=== PATIENT | female | born 1950 | race Asian ===

== ENCOUNTER 2016-12-20 21:15 | Emergency (ER) | payer OTHER ==
--- NOTE | 2016-12-20 21:31 | PDOC ---
History of Present Illness - General History Source: Patient Exam Limitations: No Limitations - History of Present Illness Initial Comments: 12/20/16 21:32 The patient is a 66 year old female with no significant past medical history who presents to the ED with complaints of frequency, flank pain and subjective fever for a week. The patient reports urinary frequency and bladder pain secondary to urination. She notes she feels like she had to urinate constantly but is not producing urine. Patient also reports dysuria and intermittent hematuria associated with present symptoms. She reports non radiating left sided flank pain that is a 6/10 in severity. Patient also reports a subjective fever and dizziness. Patient states her symptoms progressively worsened yesterday. Patient reports she visited her doctor this week and was given pain medication with no relief. Denies abdominal pain, nausea, vomiting or diarrhea. Denies chest pain or shortness of breath. Denies any other symptoms. <Rene Duque - Last Filed: 12/20/16 21:32> <Troy Kowalski - Last Filed: 12/21/16 04:04> - General Chief Complaint: Urinary Problem Stated Complaint: LEFT FLANK PAIN, URINARY PAIN Time Seen by Provider: 12/20/16 21:30 Past History <Rene Duque - Last Filed: 12/20/16 21:32> <Troy Kowalski - Last Filed: 12/21/16 04:04> - Past Medical History Allergies/Adverse Reactions: Allergies Allergy/AdvReac Type Severity Reaction Status Date / Time No Known Allergies Allergy Verified 12/20/16 21:30 Home Medications: Ambulatory Orders Ciprofloxacin [Cipro (Restricted To Id)] 500 mg PO Q12H #20 tablet 12/20/16 Review of Systems - Review of Systems Able to Perform ROS?: Yes Comments:: 12/20/16 21:32 CONSTITUTIONAL: + fever Absent: diaphoresis, generalized weakness, malaise, loss of appetite HEENT: Absent: rhinorrhea, nasal congestion, throat pain, throat swelling, difficulty swallowing, mouth swelling, ear pain, eye pain, visual Changes CARDIOVASCULAR: Absent: chest pain, syncope, palpitations, irregular heart rate, lightheadedness , peripheral edema RESPIRATORY: Absent: cough, shortness of breath, dyspnea with exertion, orthopnea, wheezing, stridor, hemoptysis GASTROINTESTINAL: Absent: abdominal pain, abdominal distension, nausea, vomiting, diarrhea, constipation, melena, hematochezia GENITOURINARY: + flank pain, dysuria, hematuria, frequency, bladder pain Absent: urgency, hesitancy, flank pain, genital pain MUSCULOSKELETAL: Absent: myalgia, arthralgia, joint swelling SKIN: Absent: rash, itching, pallor HEMATOLOGIC/IMMUNOLOGIC: Absent: easy bleeding, easy bruising, lymphadenopathy, frequent infections ENDOCRINE: Absent: unexplained weight gain, unexplained weight loss, heat intolerance, cold intolerance NEUROLOGIC: + dizziness Absent: headache, focal weakness or paresthesias, unsteady gait, seizure, mental status changes, bladder or bowel incontinence PSYCHIATRIC: Absent: anxiety, depression, suicidal or homicidal ideation, hallucinations. All Other Systems: Reviewed and Negative <Rene Duque - Last Filed: 12/20/16 21:32> *Physical Exam - Physical Exam Comments: 12/20/16 21:33 GENERAL: Well developed, well nourished. Awake and alert. No acute distress. HEENT: Normocephalic, atraumatic. PERRLA, EOMI. No conjunctival pallor. Sclera are non- icteric. Moist mucous membranes. Oropharynx is clear. NECK: Supple. Full ROM. No JVD. Carotid pulses 2+ and symmetric, without bruits. No thyromegaly. NCo lymphadenopathy. CARDIOVASCULAR: Regular rate and rhythm. No murmurs, rubs, or gallops. Distal pulses are 2+ and symmetric. PULMONARY: No evidence of respiratory distress. Lungs clear to auscultation bilaterally. No wheezing, rales or rhonchi. ABDOMINAL: Soft. Non-tender. Non-distended. No rebound or guarding. No organomegaly. Normoactive bowel sounds. MUSCULOSKELETAL + Left costovertebral tenderness. Normal range of motion at all joints. No bony deformities or tenderness. EXTREMITIES: No cyanosis. No clubbing. No edema. No calf tenderness. SKIN: Warm and dry. Normal capillary refill. No rashes. No jaundice. NEUROLOGICAL: Alert, awake, appropriate. Cranial nerves 2-12 intact. No deficits to light touch and temperature in face, upper extremities and lower extremities. No motor deficits in the in face, upper extremities and lower extremities. Normoreflexic in the upper and lower extremities. Normal speech. Toes are down- going bilaterally. Gait is normal without ataxia. PSYCHIATRIC: Cooperative. Good eye contact. Appropriate mood and affect. <Rene Duque - Last Filed: 12/20/16 21:32> ED Treatment Course - LABORATORY CBC & Chemistry Diagram: 12/20/16 21:40 12/20/16 21:40 <Troy Kowalski - Last Filed: 12/21/16 04:04> Medical Decision Making - Medical Decision Making 12/21/16 04:02 PE and hpi c/w pyelo fluids and abx in ED prefer to admit patient but she refuses (we offered to let granddaughter stay with her overnight in patients room) continue abx return to ED for worsening <Troy Kowalski - Last Filed: 12/21/16 04:04> *DC/Admit/Observation/Transfer - Attestations Scribe Attestion: 12/20/16 21:33 Documentation prepared by Rene Duque, acting as associate medical director for Troy Kowalski MD <Rene Duque - Last Filed: 12/20/16 21:32> <Troy Kowalski - Last Filed: 12/21/16 04:04> Diagnosis at time of Disposition: Urinary tract infection Qualifiers: Urinary tract infection type: acute pyelonephritis Qualified Code(s): N10 - Acute pyelonephritis - Discharge Dispostion Disposition: HOME Condition at time of disposition: Good - Prescriptions Prescriptions: Ciprofloxacin [Cipro (Restricted To Id)] 500 mg PO Q12H #20 tablet - Patient Instructions Printed Discharge Instructions: DI for Kidney Infection Additional Instructions: I recommend you stay in the hospital. Please return to the ER if you continue to feel bad or if you feel worse. Be sure to take the antibiotics as prescribed
[2016-12-20] MEDS ORDERED: CIPROFLOXACIN 500 MG TABLET (RESTRICTED TO ID) PO ONE (21:40)
[2016-12-20] MEDS ORDERED: CIPROFLOXACIN 250 MG TABLET (RESTRICTED TO ID) PO ONE (21:44)
[2016-12-20 21:50] LABS: URINE APPEARANCE Clear; URINE BILIRUBIN Negative (NEGATIVE); URINE GLUCOSE (UA) Negative (NEGATIVE); URINE KETONE 2+ (NEGATIVE); URINE NITRITE Negative (NEGATIVE); URINE UROBILINOGEN 2.0 E.U/dl (0.2-1.0)
[2016-12-20 22:09] VITALS: BMI 22.7
[2016-12-20 22:12] LABS: BASOPHIL 0.3 % (0-2.0); MCH 29.4 pg (25.7-33.7); MEAN CELL VOLUME 86.5 fl (80-96); MEAN PLT VOLUME 7.5 fl (7.5-11.1); PLATELET COUNT 254 K/MM3 (134-434); RDW 11.2 % (11.6-15.6); WHITE BLOOD COUNT 17.2 K/mm3 (4.0-10.8)
[2016-12-20 22:13] LABS: URINE BLOOD 3+ (NEGATIVE); URINE COLOR YELLOW; URINE LEUK ESTERASE 1+ (NEGATIVE); URINE PROTEIN 2+ (NEGATIVE)
[2016-12-20 22:19] LABS: ALBUMIN 3.5 g/dl (3.5-5.0); ALK PHOS 70 U/L (32-92); ANION GAP 10 (8-16); BILIRUBIN,TOTAL 1.2 mg/dl (0.2-1.0); CALCIUM 8.6 mg/dl (8.4-10.2); CO2 23 mmol/L (22-28); COCKROFT - GAULT 72.7855; CREATININE 0.8 mg/dl (0.6-1.3); GLUCOSE,RANDOM 149 mg/dl (74-106); SGOT/AST 19 U/L (10-42); SGPT/ALT 14 U/L (10-40); TOT PROT 7.2 g/dl (6.4-8.3)
[2016-12-20 22:20] LABS: CPK(DFH) 77 IU/L (26-140)
[2016-12-20] MEDS ORDERED: SODIUM CHLORIDE 1,000 ML IV ONE (22:27)
[2016-12-20 22:37] VITALS: BP 115/70; PULSE 93; TEMP 99.9
[2016-12-20 22:41] LABS: URINE RBC 30-50 /hpf (0-3); URINE WBC 20-30 (3-5)
[2016-12-20 22:42] LABS: TROPONIN I (DFP) < 0.03 ng/ml (0.03-0.50)
== END 2016-12-20 23:36 | disposition home or self-care (01) ==
LOC: FER 21:15
PROC: 3E0337Z Introduction of Electrolytic and Water Balance Substance into Peripheral Vein, Percutaneous Approach (ICD-10-PCS; principal; 2016-12-20)
DX: N10 Acute pyelonephritis (principal)
CPT/HCPCS: 36415; 80053; 81003; 81015; 82550; 84484; 85025; 87086; 99283-25

== ENCOUNTER 2017-04-06 16:20 | Observation (INO) | payer OTHER ==
--- NOTE | 2017-04-06 16:27 | PDOC ---
History of Present Illness - General History Source: Patient, Family Exam Limitations: Language Barrier - History of Present Illness Initial Comments: 04/06/17 17:13 The patient is a 66 year old female, with no significant past medical history, who presents today complaining of 1 week of dizziness and weakness. She notes that her blood pressure usually runs low and she starts feeling lightheaded and dizzy when this occurs. She notes that lightheadedness is exacerbated when getting up from sitting to standing. She does not feel like the room is spinning and does not feel like she is going to fall over. She notes that she experiences intermittent chest pain that she describes as pressure and associated SOB, but is not experiencing the chest pain right now. The patient does not speak Frisian and had her son and daughter translate. Denies palpitations. Denies headache, visual changes. Denies numbness and tingling. Denies fever, chills, nausea, vomiting. Denies lower extremity swelling. Denies abdominal pain. Allergies: NKDA <Maria Chiang - Last Filed: 04/06/17 18:09> - General History Source: Patient, Family Exam Limitations: No Limitations, Language Barrier <Kisha Sandy - Last Filed: 04/06/17 19:18> - General Chief Complaint: Weakness Stated Complaint: WEAKNESS Time Seen by Provider: 04/06/17 16:24 Past History <Maria Chiang - Last Filed: 04/06/17 18:09> - Suicide/Smoking/Psychosocial Hx Smoking History: Never smoked Hx Alcohol Use: No Drug/Substance Use Hx: No Substance Use Type: None <Kisha Sandy - Last Filed: 04/06/17 19:18> - Past Medical History Allergies/Adverse Reactions: Allergies Allergy/AdvReac Type Severity Reaction Status Date / Time No Known Allergies Allergy Verified 04/06/17 16:24 Home Medications: Ambulatory Orders NK [No Known Home Medication] 04/06/17 Review of Systems - Review of Systems Able to Perform ROS?: Yes Comments:: 04/06/17 17:14 GENERAL/CONSTITUTIONAL: +weakness, dizziness, lightheadedness. No: fever, chills , loss of appetite. HEAD, EYES, EARS, NOSE AND THROAT: No: change in vision, ear pain, discharge, sore throat, throat swelling. CARDIOVASCULAR: +intermittent chest pain with associated SOB. No: palpitations, syncope RESPIRATORY: No: cough, wheezing, hemoptysis, stridor. GASTROINTESTINAL: No: nausea, vomiting, abdominal cramping, diarrhea, rectal bleeding, constipation. GENITOURINARY: No: dysuria, hematuria, frequency, urgency, flank pain. MUSCULOSKELETAL: No: back pain, neck pain, joint pain, muscle swelling or pain SKIN: No: lesions, pallor, rash or easy bruising. NEUROLOGIC: No: headache, vertigo, paresthesias ENDOCRINE: No: unexplained weight gain or loss HEMATOLOGIC/LYMPHATIC: No: anemia, easy bleeding, swelling nodes <Maria Chiang - Last Filed: 04/06/17 18:09> *Physical Exam - Vital Signs Last Vital Signs Temp Pulse Resp BP Pulse Ox 98.8 F 97 H 18 129/77 97 04/06/17 16:20 04/06/17 16:20 04/06/17 16:20 04/06/17 16:20 04/06/17 16:20 - Physical Exam Comments: 04/06/17 18:09 GENERAL: The patient is in no acute distress. HEAD: Normal with no signs of trauma. EYES: PERRLA, EOMI, sclera anicteric, conjunctiva clear. ENT: Ears normal, nares patent, oropharynx clear without exudates. Moist mucous membranes. NECK: Normal range of motion, supple without lymphadenopathy, JVD, or masses. LUNGS: Breath sounds equal, clear to auscultation bilaterally. No wheezes, and no crackles. HEART:Regular rate and rhythm, normal S1 and S2 without murmur, rub or gallop. ABDOMEN: Soft, nontender, normoactive bowel sounds. No guarding, no rebound. EXTREMITIES: Normal range of motion, no edema. No clubbing or cyanosis. No erythema, or tenderness. NEUROLOGICAL: Cranial nerves II through XII grossly intact. Normal speech. No focal neurological deficits. MUSCULOSKELETAL: Back nontender to palpation, no CVA tenderness SKIN: Warm, Dry, normal turgor, no rashes or lesions noted. <Maria Chiang - Last Filed: 04/06/17 18:09> Heart Score/ECG Review #1 ECG reviewed & interpreted by me at: 16:40 04/06/17 16:40 Sinus rhythm, rate of 97 bpm nml [place] Intervals: pr: 144ms, QRS:86ms,QTc:436ms (+) [place] No ST elevations No ST depressions No T wave inversions <Kisha Sandy - Last Filed: 04/06/17 19:18> ED Treatment Course - LABORATORY CBC & Chemistry Diagram: 04/06/17 16:35 04/06/17 16:35 - ADDITIONAL ORDERS Additional order review: Laboratory Results 04/06/17 16:35 PT with INR 10.7 INR 0.95 L 04/06/17 16:35 RBC 5.15 MCV 85.5 MCHC 34.1 RDW 12.6 D MPV 7.6 Neutrophils % 52.4 D Lymphocytes % 39.7 D Monocytes % 6.7 Eosinophils % 0.9 D Basophils % 0.3 <Maria Chiang - Last Filed: 04/06/17 18:09> - LABORATORY CBC & Chemistry Diagram: 04/06/17 16:35 04/06/17 16:35 <Kisha Sandy - Last Filed: 04/06/17 19:18> Medical Decision Making - Medical Decision Making 04/06/17 16:26 A portion of this note was documented by scribe services under my direction. I have reviewed the details of the note, within reason, and agree with the documentation with the following case summary and management plan written by me. Nursing documentation reviewed and incorporated into medical decision making 04/06/17 16:42 This patient is a 66-year-old female presented to emergency department with family due to generalized weakness. Patient's EKGs consistent with bigeminy, no acute ischemic changes. Pt has had weakness No vertigo Intermittent chest pain, none today No recent fevers or chills Resolved urinary symptoms (pt treated in October) No recent diarrhea or vomiting Labs ordered, Chest x-ray, EKG. 04/06/17 17:10 Laboratory Tests 04/06/17 04/06/17 16:35 16:35 WBC 6.4 D Hgb 15.0 Hct 44.0 Plt Count 227 INR 0.95 L 04/06/17 17:24 Laboratory Tests 04/06/17 16:35 Sodium 139 Potassium 3.9 Chloride 107 Carbon Dioxide 29 H D BUN 21 H D Creatinine 0.7 Random Glucose 113 H D AST 24 D ALT 19 D 04/06/17 17:50 Laboratory Tests 04/06/17 16:35 Troponin I < 0.03 L 04/06/17 17:51 Pt states that she feels much better No longer feeling weak Pt still has head heaviness No new symptoms Pt does not want to be placed on observation I have explained my concern that her symptoms are non specific and could be related to CAD EKG demonstrates bigemeny, pt has no old ekgs for comparison Granddaughter is attempting to explain to this patient the importance of complete work up Pt would like to go home In Lieu of observation, repeat troponin will be performed in 6 hours <Kisha Sandy - Last Filed: 04/06/17 19:18> *DC/Admit/Observation/Transfer - Attestations Scribe Attestion: 04/06/17 17:14 Documentation prepared by JEREMY Lua, acting as medical practitioners for Kisha Sandy MD <Maria Chiang - Last Filed: 04/06/17 18:09> - Discharge Dispostion Admit: No <Kisha Sandy - Last Filed: 04/06/17 19:18> Diagnosis at time of Disposition: Weakness - Discharge Dispostion Condition at time of disposition: Stable - Patient Instructions Printed Discharge Instructions: DI for Muscle Weakness
[2017-04-06] MEDS ORDERED: SODIUM CHLORIDE 1,000 ML IV SCH (16:30)
[2017-04-06 16:58] LABS: BASOPHIL 0.3 % (0-2.0); EOSINOPHIL 0.9 % (0-4.5); MCH 29.1 pg (25.7-33.7); MCHC 34.1 g/dl (32.0-36.0); MEAN CELL VOLUME 85.5 fl (80-96); MEAN PLT VOLUME 7.6 fl (7.5-11.1); NEUTROPHILS 52.4 % (42.8-82.8); PLATELET COUNT 227 K/MM3 (134-434); RDW 12.6 % (11.6-15.6); WHITE BLOOD COUNT 6.4 K/mm3 (4.0-10.8)
[2017-04-06 17:04] LABS: INR 0.95 (0.82-1.09); PROTHROMBIN TIME (PATIENT) 10.7 SEC (10.2-13.0)
[2017-04-06 17:11] LABS: ALBUMIN 4.3 g/dl (3.5-5.0); ALK PHOS 82 U/L (32-92); ANION GAP 3 (8-16); BILIRUBIN,TOTAL 0.8 mg/dl (0.2-1.0); CALCIUM 9.5 mg/dl (8.4-10.2); CO2 29 mmol/L (22-28); CPK 143 IU/L (26-192); CREATININE 0.7 mg/dl (0.6-1.3); GLUCOSE,RANDOM 113 mg/dl (74-106); MAGNESIUM 2.3 mg/dL (1.8-2.4); SGOT/AST 24 U/L (10-42); SGPT/ALT 19 U/L (10-40)
[2017-04-06 17:27] LABS: TROPONIN I (DFP) < 0.03 ng/ml (0.03-0.50)
[2017-04-06 17:32] LABS: PH,URINE 6.5 (4.5-8); URINE APPEARANCE Clear; URINE BILIRUBIN Negative (NEGATIVE); URINE BLOOD Trace-intact (NEGATIVE); URINE GLUCOSE (UA) Negative (NEGATIVE); URINE KETONE Negative (NEGATIVE); URINE NITRITE Negative (NEGATIVE); URINE PROTEIN Negative (NEGATIVE); URINE UROBILINOGEN 0.2 (0.2-1.0)
[2017-04-06 17:33] LABS: URINE COLOR YELLOW
[2017-04-06 18:15] LABS: URINE BACTERIA FEW /hpf (NEGATIVE); URINE RBC 0-2 /hpf (0-3)
[2017-04-06 18:17] LABS: URINE LEUK ESTERASE TRACE (NEGATIVE)
[2017-04-06 19:29] LABS: THYROID STIMULATING HORMONE 1.16 uIU/ml (0.358-3.74)
--- NOTE | 2017-04-06 19:46 | PDOC ---
*Physical Exam - Vital Signs Last Vital Signs Temp Pulse Resp BP Pulse Ox 98.8 F 85 16 123/88 98 04/06/17 16:20 04/06/17 19:45 04/06/17 19:45 04/06/17 19:45 04/06/17 19:45 - Physical Exam Comments: 04/06/17 20:03 Constitutional: Awake, alert, oriented. No acute distress. Head: Normocephalic. Atraumatic Eyes: PERRL. EOMI. Conjunctivae are not pale. ENT: Mucous membranes are moist and intact. Posterior pharynx without exudates or erythema. Uvula midline. Neck: Supple. Full ROM. No lymphadenopathy. Cardiovascular: Heart sounds normal but persistant bigeminy on the monitor. Regular rate. Regular rhythm. S1, S2 regular. Distal pulses are 2+ and symmetric. Pulmonary/Chest: No evidence of respiratory distress. Clear to auscultation bilaterally No wheezing, rales or rhonchi. Abdominal: Soft and non-distended. There is no tenderness. No rebound, guarding or rigidity. No organomegaly. No palpable masses. Good bowel sounds. Back: No CVA tenderness. Musculoskeletal: No edema. No cyanosis. No clubbing. Full range of motion in all extremities. Nocalf tenderness. Radial/pedal pulses are intact and 2+ bilaterally Skin: Skin is warm and dry. No petechiae. No purpura. Neurological: Alert and oriented to person, place, and time. Cranial nerves II -XII are grossly intact. Normal speech. Strength is grossly symmetric. No sensory deficits. Psychiatric: Good eye contact. Normal interaction, affect and behavior. <Maria Chiang - Last Filed: 04/06/17 20:03> - Vital Signs Last Vital Signs Temp Pulse Resp BP Pulse Ox 98.8 F 102 H 18 129/80 97 04/06/17 16:20 04/06/17 17:30 04/06/17 17:30 04/06/17 17:30 04/06/17 17:30 <Yandy Phillips - Last Filed: 04/06/17 20:38> ED Treatment Course - LABORATORY CBC & Chemistry Diagram: 04/06/17 16:35 04/06/17 16:35 - ADDITIONAL ORDERS Additional order review: Laboratory Results 0904/06/17 04/06/17 17:05 16:35 16:35 PT with INR INR Sodium Potassium Chloride Carbon Dioxide Anion Gap BUN Creatinine Creat Clearance w eGFR Random Glucose Calcium Magnesium Total Bilirubin AST ALT Alkaline Phosphatase Creatine Kinase 143 Troponin I < 0.03 L Total Protein Albumin TSH Urine Color Yellow Urine Appearance Clear Urine pH 6.5 Ur Specific [place] <= 1.005 Urine Protein Negative Urine Glucose (UA) Negative Urine Ketones Negative Urine Blood Trace-intact H Urine Nitrite Negative Urine Bilirubin Negative Urine Urobilinogen 0.2 Urine RBC 0-2 Urine WBC 2-3 Ur Epithelial Cells Few Urine Bacteria Few Blood Type O POSITIVE Antibody Screen Negative 04/06/17 04/06/17 16:35 16:35 PT with INR 10.7 INR 0.95 L Sodium 139 Potassium 3.9 Chloride 107 Carbon Dioxide 29 H D Anion Gap 3 L BUN 21 H D Creatinine 0.7 Creat Clearance w eGFR > 60 Random Glucose 113 H D Calcium 9.5 Magnesium 2.3 Total Bilirubin 0.8 D AST 24 D ALT 19 D Alkaline Phosphatase 82 Creatine Kinase Troponin I Total Protein 7.0 Albumin 4.3 D TSH 1.16 Urine Color Urine Appearance Urine pH Ur Specific [place] Urine Protein Urine Glucose (UA) Urine Ketones Urine Blood Urine Nitrite Urine Bilirubin Urine Urobilinogen Urine RBC Urine WBC Ur Epithelial Cells Urine Bacteria Blood Type Antibody Screen 04/06/17 16:35 RBC 5.15 MCV 85.5 MCHC 34.1 RDW 12.6 D MPV 7.6 Neutrophils % 52.4 D Lymphocytes % 39.7 D Monocytes % 6.7 Eosinophils % 0.9 D Basophils % 0.3 <Maria Chiang - Last Filed: 04/06/17 20:03> - LABORATORY CBC & Chemistry Diagram: 04/06/17 16:35 04/06/17 16:35 - ADDITIONAL ORDERS Additional order review: Laboratory Results 04/06/17 04/06/17 04/06/17 17:05 16:35 16:35 PT with INR INR Sodium Potassium Chloride Carbon Dioxide Anion Gap BUN Creatinine Creat Clearance w eGFR Random Glucose Calcium Magnesium Total Bilirubin AST ALT Alkaline Phosphatase Creatine Kinase 143 Troponin I < 0.03 L Total Protein Albumin TSH Urine Color Yellow Urine Appearance Clear Urine pH 6.5 Ur Specific [place] <= 1.005 Urine Protein Negative Urine Glucose (UA) Negative Urine Ketones Negative Urine Blood Trace-intact H Urine Nitrite Negative Urine Bilirubin Negative Urine Urobilinogen 0.2 Urine RBC 0-2 Urine WBC 2-3 Ur Epithelial Cells Few Urine Bacteria Few Blood Type O POSITIVE Antibody Screen Negative 04/06/17 04/06/17 16:35 16:35 PT with INR 10.7 INR 0.95 L Sodium 139 Potassium 3.9 Chloride 107 Carbon Dioxide 29 H D Anion Gap 3 L BUN 21 H D Creatinine 0.7 Creat Clearance w eGFR > 60 Random Glucose 113 H D Calcium 9.5 Magnesium 2.3 Total Bilirubin 0.8 D AST 24 D ALT 19 D Alkaline Phosphatase 82 Creatine Kinase Troponin I Total Protein 7.0 Albumin 4.3 D TSH 1.16 Urine Color Urine Appearance Urine pH Ur Specific [place] Urine Protein Urine Glucose (UA) Urine Ketones Urine Blood Urine Nitrite Urine Bilirubin Urine Urobilinogen Urine RBC Urine WBC Ur Epithelial Cells Urine Bacteria Blood Type Antibody Screen 04/06/17 16:35 RBC 5.15 MCV 85.5 MCHC 34.1 RDW 12.6 D MPV 7.6 Neutrophils % 52.4 D Lymphocytes % 39.7 D Monocytes % 6.7 Eosinophils % 0.9 D Basophils % 0.3 <Yandy Phillips - Last Filed: 04/06/17 20:38> Medical Decision Making - Medical Decision Making 04/06/17 20:03 66 yr old female with no significant past medical history -Hearts sounds normal but persistent bigeminy on the monitor -Intermittent dyspnea and chest discomfort while in the ER -Granddaughter convinced to her to stay. [facility] and we will admit to hospitalist <Maria Chiang - Last Filed: 04/06/17 20:03> - Medical Decision Making 04/06/17 20:36 a/p: pt states intermittent chest pressure, intermittent dyspnea and generalized weakness. will keep in obs for further eval. granddaughter at the bedside. patient pending repeat trops, will need cardiac monitoring - currently bigeminy. case discussed with IM resident, accepts pt to service under Dr. Villanueva <Yandy Phillips - Last Filed: 04/06/17 20:38> *DC/Admit/Observation/Transfer <Maria Chiang - Last Filed: 04/06/17 20:03> - Discharge Dispostion Admit: Yes - Attestations Physician Attestion: 04/06/17 20:38 I, Dr. Yandy Phillips, DO, attest that this document has been prepared under my direction and personally reviewed by me in its entirety. I further attest, that it accurately reflects all work, treatment, procedures and medical decision -making performed by me. <Yandy Phillips - Last Filed: 04/06/17 20:38> Diagnosis at time of Disposition: Weakness, Ventricular bigeminy - Discharge Dispostion Condition at time of disposition: Fair - Referrals - Patient Instructions Printed Discharge Instructions: DI for Muscle Weakness - Post Discharge Activity
--- NOTE | 2017-04-06 22:11 | HP ---
CHIEF COMPLAINT: dizziness PCP: In [facility] HISTORY OF PRESENT ILLNESS: This is a 66 year old female with significant past medical history of occasional hypotension presented to the ED today with a one week history of dizziness and weakness. She reports that her eyes feel heavy as well. She states that she has intermittent chest pain associated with difficulty catching her breath and needs to take a deep breath. She describes the pain in her chest as a heaviness. The pain is not associated with any specific alleviating or aggravating factors. She denies palpitations. She also reports an odd sensation in her epigastric area after eating at times and describes it as "feeling hungry ". She denies nausea, vomiting, diarrhea, constipation. ER course was notable for: (1) ECG with ventricular bigeminy (2) Troponin negative x 1 Recent Travel: pt denies PAST MEDICAL HISTORY: hypotension PAST SURGICAL HISTORY: ovarian cyst removal 30 years ago Social History: Smoking: denies Alcohol: denies Drugs: denies Family History: mother and father in their late 80s, old age 2 brothers and 2 sisters all alive and well 2 children alive and well Allergies No Known Allergies Allergy (Verified 04/06/17 16:24) HOME MEDICATIONS: 3 Medication Instructions Recorded NK [No Known Home Medication] 04/06/17 REVIEW OF SYSTEMS CONSTITUTIONAL: generalized weakness, malaise Absent: fever, chills, diaphoresis, loss of appetite, weight change HEENT: Absent: rhinorrhea, nasal congestion, throat pain, throat swelling, difficulty swallowing, mouth swelling, ear pain, eye pain, visual changes CARDIOVASCULAR: chest pain Absent: syncope, palpitations, irregular heart rate, lightheadedness, peripheral edema RESPIRATORY: Absent: cough, shortness of breath, dyspnea with exertion, orthopnea, wheezing, stridor, hemoptysis GASTROINTESTINAL: Absent: abdominal pain, abdominal distension, nausea, vomiting, diarrhea, constipation, melena, hematochezia GENITOURINARY: Absent: dysuria, frequency, urgency, hesitancy, hematuria, flank pain, genital pain MUSCULOSKELETAL: Absent: myalgia, arthralgia, joint swelling, back pain, neck pain SKIN: Absent: rash, itching, pallor HEMATOLOGIC/IMMUNOLOGIC: Absent: easy bleeding, easy bruising, lymphadenopathy, frequent infections ENDOCRINE: Absent: unexplained weight gain, unexplained weight loss, heat intolerance, cold intolerance NEUROLOGIC: dizziness Absent: headache, focal weakness or paresthesias, unsteady gait, seizure, mental status changes, bladder or bowel incontinence PSYCHIATRIC: Absent: anxiety, depression, suicidal or homicidal ideation, hallucinations. PHYSICAL EXAMINATION Vital Signs - 24 hr 3 04/06/17 04/06/17 04/06/17 16:20 17:25 17:30 Temperature 98.8 F Pulse Rate 97 H Pulse Rate [ 91 H 102 H Left Apical] Respiratory 18 18 18 Rate Blood Pressure 129/77 Blood Pressure 116/60 129/80 [Right Arm] O2 Sat by Pulse 97 97 97 Oximetry (%) 3 04/06/17 04/06/17 19:45 21:00 Temperature 98.1 F Pulse Rate Pulse Rate [ 85 82 Left Apical] Respiratory 16 16 Rate Blood Pressure Blood Pressure 123/88 109/72 [Right Arm] O2 Sat by Pulse 98 98 Oximetry (%) GENERAL: Awake, alert, and fully oriented, in no acute distress. HEAD: Normal with no signs of trauma. EYES: Pupils equal, round and reactive to light, extraocular movements intact, sclera anicteric, conjunctiva clear. No lid lag. EARS, NOSE, THROAT: Ears normal, nares patent, oropharynx clear without exudates. Moist mucous membranes. NECK: Normal range of motion, supple without lymphadenopathy, JVD, or masses. LUNGS: Breath sounds equal, clear to auscultation bilaterally. No wheezes, and no crackles. No accessory muscle use. HEART: Regular rate and rhythm, normal S1 and S2 without murmur, rub or gallop. ABDOMEN: Soft, nontender, not distended, normoactive bowel sounds, no guarding, no rebound, no masses. No hepatomegaly or splenomegaly. MUSCULOSKELETAL: Normal range of motion at all joints. No bony deformities or tenderness. No CVA tenderness. UPPER EXTREMITIES: 2+ pulses, warm, well-perfused. No cyanosis. No clubbing. No peripheral edema. LOWER EXTREMITIES: 2+ pulses, warm, well-perfused. No calf tenderness. No peripheral edema. NEUROLOGICAL: Cranial nerves II-XII intact. Normal speech. Normal gait. PSYCHIATRIC: Cooperative. Good eye contact. Appropriate mood and affect. SKIN: Warm, dry, normal turgor, no rashes or lesions noted, normal capillary refill. Laboratory Results - last 24 hr 3 04/06/17 04/06/17 04/06/17 16:35 16:35 16:35 WBC 6.4 D RBC 5.15 Hgb 15.0 Hct 44.0 MCV 85.5 MCH 29.1 MCHC 34.1 RDW 12.6 D Plt Count 227 MPV 7.6 Neutrophils % 52.4 D Lymphocytes % 39.7 D Monocytes % 6.7 Eosinophils % 0.9 D Basophils % 0.3 PT with INR 10.7 INR 0.95 L Sodium 139 Potassium 3.9 Chloride 107 Carbon Dioxide 29 H D Anion Gap 3 L BUN 21 H D Creatinine 0.7 Creat Clearance w eGFR > 60 Random Glucose 113 H D Calcium 9.5 Magnesium 2.3 Total Bilirubin 0.8 D AST 24 D ALT 19 D Alkaline Phosphatase 82 Creatine Kinase 143 Troponin I < 0.03 L Total Protein 7.0 Albumin 4.3 D TSH 1.16 Urine Color Urine Appearance Urine pH Ur Specific Irwin Urine Protein Urine Glucose (UA) Urine Ketones Urine Blood Urine Nitrite Urine Bilirubin Urine Urobilinogen Urine RBC Urine WBC Ur Epithelial Cells Urine Bacteria Blood Type O POSITIVE Antibody Screen Negative 3 Urine Color Yellow 04/06/17 17:05 Urine Appearance Clear 04/06/17 17:05 Urine pH 6.5 (4.5-8) 04/06/17 17:05 Ur Specific Irwin <= 1.005 (1.005-1.025) 04/06/17 17:05 Urine Protein Negative (NEGATIVE) 04/06/17 17:05 Urine Glucose (UA) Negative (NEGATIVE) 04/06/17 17:05 Urine Ketones Negative (NEGATIVE) 04/06/17 17:05 Urine Blood Trace-intact (NEGATIVE) H 04/06/17 17:05 Urine Nitrite Negative (NEGATIVE) 04/06/17 17:05 Urine Bilirubin Negative (NEGATIVE) 04/06/17 17:05 Urine RBC 0-2 /hpf (0-3) 04/06/17 17:05 Urine WBC 2-3 (3-5) 04/06/17 17:05 Ur Epithelial Cells Few /HPF 04/06/17 17:05 Urine Bacteria Few /hpf (NEGATIVE) 04/06/17 17:05 ECG sinus rhythm with bigeminy vent rate 97, QTC [address]/T wave changes Radiology Reports CXR: final read pending, haziness noted RLL perihilar aspect, will await final reading ASSESSMENT/PLAN: 66yF with PMH hypotension presented to ED with dizziness, generalized weakness and intermittent chest pain x 1 week. Cardio: Bigeminy - unknown if new or old. Family and pt report no previous ECG as only sees PCP for acute illnesses - cardiology consult - cardiac monitoring Chest pain - cont cardiac monitoring - trend troponin x 3,first negative - cardiology consult Neuro: Dizziness - consider CT head if not improving with management of cardiac conditions DVT PPX - deferred, expected LOS <48h FEN - appears well hydrated, tolerating po, will defer IVF - BMP in am - regular diet Dispo: pt currently requires inpatient observation of her emergent condition. Visit type - Emergency Visit Emergency Visit: Yes ED Registration Date: 04/06/17 Care time: The patient presented to the Emergency Department on the above date and was hospitalized for further evaluation of their emergent condition. - New Patient This patient is new to me today: Yes Date on this admission: 04/06/17 - Critical Care Critical Care patient: No
[2017-04-06 22:25] VITALS: BMI 23.3
[2017-04-07] MEDS ORDERED: POTASSIUM CHLORIDE TABS 20 MEQ TABLET.ER (FP) PO ONE (08:15)
[2017-04-07 08:19] LABS: BASOPHIL 0.8 % (0-2.0); EOSINOPHIL 1.4 % (0-4.5); MCH 29.8 pg (25.7-33.7); MCHC 34.7 g/dl (32.0-36.0); MEAN CELL VOLUME 85.8 fl (80-96); MEAN PLT VOLUME 7.4 fl (7.5-11.1); NEUTROPHILS 50.8 % (42.8-82.8); PLATELET COUNT 208 K/MM3 (134-434); RDW 12.8 % (11.6-15.6); WHITE BLOOD COUNT 4.3 K/mm3 (4.0-10.8)
[2017-04-07 08:31] LABS: ANION GAP -2 (8-16); CALCIUM 8.3 mg/dl (8.4-10.2); CO2 30 mmol/L (22-28); CPK 76 IU/L (26-192); CREATININE 0.7 mg/dl (0.6-1.3); GLUCOSE,RANDOM 101 mg/dl (74-106); MAGNESIUM 2.2 mg/dL (1.8-2.4); PHOSPHOROUS 3.3 mg/dl (2.5-4.6)
--- NOTE | 2017-04-07 09:35 | PN ---
Physical Exam: SUBJECTIVE: Patient seen and examined, reports headache localized to the center of head, denies any shortness of breath, pt does report dizziness OBJECTIVE: patient is a 66 y/o female with no significant past medical history was admitted to observation for symptomatic ventricular bigmeny Vital Signs Period Temp Pulse Resp BP Sys/Flores Pulse Ox Last 24 Hr 97.5 F-98.3 F 46-77 16-18 100-116/56-69 96-98 GENERAL: The patient is awake, alert, and fully oriented, in no acute distress. HEAD: Normal with no signs of trauma. EYES: PERRL, extraocular movements intact, sclera anicteric, conjunctiva clear. No ptosis. ENT: Ears normal, nares patent, oropharynx clear without exudates, moist mucous membranes. NECK: Trachea midline, full range of motion, supple. LUNGS: Breath sounds equal, clear to auscultation bilaterally, no wheezes, no crackles, no accessory muscle use. HEART: irregular regular, rate and rhythm, S1, S2 without murmur, rub or gallop. ABDOMEN: Soft, nontender, nondistended, normoactive bowel sounds, no guarding, no rebound, no hepatosplenomegaly, no masses. EXTREMITIES: 2+ pulses, warm, well-perfused, no edema. NEUROLOGICAL: Cranial nerves II through XII grossly intact. Normal speech, gait not observed. PSYCH: Normal mood, normal affect. SKIN: Warm, dry, normal turgor, no rashes or lesions noted Laboratory Results - last 24 hr 04/06/17 04/07/17 04/07/17 22:30 07:00 07:00 WBC 4.3 D RBC 4.62 Hgb 13.7 Hct 39.6 MCV 85.8 MCH 29.8 MCHC 34.7 RDW 12.8 Plt Count 208 MPV 7.4 L Neutrophils % 50.8 Lymphocytes % 39.9 Monocytes % 7.1 Eosinophils % 1.4 Basophils % 0.8 Sodium 140 Potassium 4.3 Chloride 112 H Carbon Dioxide 30 H Anion Gap -2 L BUN 17 Creatinine 0.7 Random Glucose 101 Calcium 8.3 L Phosphorus 3.3 Magnesium 2.2 Creatine Kinase 76 Troponin I 0.03 Active Medications Generic Name Dose Route Start Last Admin Trade Name Freq PRN Reason Stop Dose Admin Sodium Chloride 1,000 mls @ 125 mls/hr 04/06/17 16:30 04/06/17 16:55 Normal Saline - IV 125 mls/hr ASDIR KELSEY Administration ECG sinus rhythm with bigeminy vent rate 97, QTC [address]/T wave changes Radiology Reports CXR: final read pending, haziness noted RLL perihilar aspect, will await final reading ASSESSMENT/PLAN: 66yF with PMH hypotension presented to ED with dizziness, generalized weakness and intermittent chest pain x 1 week. 1) Cardio: ventricular Bigeminy - troponin x 3 wnl - pending echo - appreciate cardiology input Chest pain - cont cardiac monitoring - start ASA 2) Neuro: new onset headaches - head ct no acute pathology noted - magnesium, toradaol and reglan ordered DVT PPX - deferred, expected LOS <48h FEN - appears well hydrated, tolerating po, will defer IVF - BMP in am - regular diet Dispo: pt currently requires telemetry observation of her emergent condition. Visit type - Emergency Visit Emergency Visit: Yes ED Registration Date: 04/06/17 Care time: The patient presented to the Emergency Department on the above date and was hospitalized for further evaluation of their emergent condition. - New Patient This patient is new to me today: No - Critical Care Critical Care patient: No - Discharge Referral Referred to [facility] No
[2017-04-07] MEDS ORDERED: MAGNESIUM SULF 50% (8.12 MEQ/2 ML-1 GM VIAL) IVPB ONE (11:15)
[2017-04-07] MEDS ORDERED: METOCLOPRAMIDE HCL INJECTION 10 MG/2 ML VIAL IVPB ONE (11:15)
[2017-04-07] MEDS ORDERED: ASPIRIN COATED 81 MG TABLET.EC PO SCH (11:45)
--- NOTE | 2017-04-07 12:12 | EKG ---
Test Reason : Blood Pressure : / mmHG Vent. Rate : 080 BPM Atrial Rate : 080 BPM P-R Int : 148 ms QRS Dur : 082 ms QT Int : 412 ms P-R-T Axes : 040 009 010 degrees QTc Int : 475 ms SINUS RHYTHM WITH FREQUENT PREMATURE VENTRICULAR COMPLEXES OTHERWISE NORMAL ECG WHEN COMPARED WITH ECG OF 06-APR-2017 16:37, NO SIGNIFICANT CHANGE WAS FOUND Confirmed by SEAN SHABAZZ MD ([id number]) on 04/07/2017 12:12:30 PM Referred By: DR BHAKTA Confirmed By:SEAN SHABAZZ MD
[2017-04-07] MEDS ORDERED: KETOROLAC TROMETHAMINE 30 MG/1 ML VIAL IVPUSH ONE (12:15)
[2017-04-07 13:09] VITALS: BP 117/74; PULSE 76; TEMP 98
--- NOTE | 2017-04-07 17:58 | CONSULT ---
Consult Consult Specialty:: Cardiology Referred by:: Geetha Waggoner Reason for Consultation:: Dizziness, PVCs/bigeminy - History of Present Illness Chief Complaint: dizziness/CP History of Present Illness: 66 yo female, non-smoker, with hx of hypotension at times, here with 1 week of intermittent dizziness, SOB at rest, chest pressure at rest. She has a hx of feeling heavy in the head , attributed to low BP/Low sugar in past -> self- treated with sugar tablets. She's never had a cardiac evaluation . She denies palpitations . She was found with PVCs/ventricular bigeminy. Hence this consult. I spoke to her daughter Bere and her son-in-law on the phone -> they said that she's always dizzy and asked about her iron level - History Source History Provided By: Patient, Family Member - Past Medical History Cardio/Vascular: Yes: Other (low BPs) Musculoskeletal: Yes: Other (right wrist fracture) - Past Surgical History Additional Surgical History: ovarian cyst removal - Alcohol/Substance Use Hx Alcohol Use: No - Smoking History Smoking history: Never smoked Have you smoked in the past 12 months: No Home Medications - Allergies Allergies/Adverse Reactions: Allergies Allergy/AdvReac Type Severity Reaction Status Date / Time No Known Allergies Allergy Verified 04/06/17 16:24 - Home Medications Home Medications: Ambulatory Orders NK [No Known Home Medication] 04/06/17 Family Disease History - Family Disease History Family History: Unremarkable Review of Systems - Review of Systems Constitutional: reports: Weakness Eyes: reports: No Symptoms HENT: reports: No Symptoms Neck: reports: No Symptoms Cardiovascular: reports: Other (see HPI) Respiratory: reports: SOB (at rest) Gastrointestinal: reports: Abdominal Pain (earlier) Genitourinary: reports: No Symptoms Musculoskeletal: reports: Joint Pain (right wrist) Neurological: reports: Dizziness Psychiatric: reports: No Symptoms Physical Exam Vital Signs: Vital Signs Temperature 98.0 F 04/07/17 12:35 Pulse Rate 76 04/07/17 12:35 Respiratory Rate 17 04/07/17 14:00 Blood Pressure 117/74 04/07/17 12:35 O2 Sat by Pulse Oximetry (%) 99 04/07/17 14:00 Constitutional: Yes: Well Nourished Eyes: Yes: Conjunctiva Clear HENT: Yes: WNL Neck: Yes: Supple Cardiovascular: Yes: Regular Rate and Rhythm, Murmur (soft KAY at LSB) Respiratory: Yes: CTA Bilaterally Gastrointestinal: Yes: Normal Bowel Sounds, Soft. No: Tenderness Musculoskeletal: Yes: Other Edema: No Peripheral Pulses WNL: Yes Neurological: Yes: Alert, Oriented Psychiatric: Yes: Alert, Oriented Labs: CBC, BMP 04/07/17 07:00 04/07/17 07:00 Imaging - Results Chest X-ray: Report Reviewed (Echo -> Nl EF, Borderline AR dil, mild-mod MR), Image Reviewed EKG: Report Reviewed, Image Reviewed (SR, PVCs) Other: Other (tele -. SR , PVCs , V bigeminy) Assessment/Plan 66 yo female with the above history, here with 1 week of dizziness, SOB and CP at rest -. found with PVCs/ventricular bigeminy Also gave history of long-standing low BP with Heavy feeling in head and her family says she's always dizzy. There is no evidence of acute SC so far (3rd CE pending) There is no CHF in spite of reading of CXR Echo shows Nl EF Nl TSH Lytes ok Rec: Ok to d/c from cardiac standpoint if 3rd enzyme neg No BB given lowish BPs Needs outpt stress test and holter to assesss PVC burden Further management based on above Thanks! D/w daughter Bere, son-in-law and grand-daughter
[2017-04-07 18:17] LABS: TROPONIN I (DFP) 0.04 ng/ml (0.03-0.50)
--- NOTE | 2017-04-07 18:42 | EKG ---
Test Reason : Blood Pressure : / mmHG Vent. Rate : 097 BPM Atrial Rate : 097 BPM P-R Int : 144 ms QRS Dur : 086 ms QT Int : 344 ms P-R-T Axes : 058 014 044 degrees QTc Int : 436 ms SINUS RHYTHM WITH FREQUENT PREMATURE VENTRICULAR COMPLEXES IN A PATTERN OF BIGEMINY POSSIBLE LEFT ATRIAL ENLARGEMENT NONSPECIFIC ST ABNORMALITY NO PREVIOUS ECGS AVAILABLE Confirmed by MD LAURA, TERRI ([id number]) on 04/07/2017 6:42:16 PM Referred By: DR WOLF Confirmed By:TERRI SANCHEZ MD
--- NOTE | 2017-04-08 06:58 | DS ---
Physical Exam: SUBJECTIVE: Patient seen and examined, denies any chest pain or shortness of breath. OBJECTIVE: Patient is a 66 year old female with significant past medical history of occasional hypotension presented to the ED today with a one week history of dizziness and weakness. She reports that her eyes feel heavy as well. She states that she has intermittent chest pain associated with difficulty catching her breath and needs to take a deep breath. She describes the pain in her chest as a heaviness. The pain is not associated with any specific alleviating or aggravating factors. She denies palpitations. She also reports an odd sensation in her epigastric area after eating at times and describes it as "feeling hungry". She denies nausea, vomiting, diarrhea, constipation. ER course was notable for: (1) ECG with ventricular bigeminy (2) Troponin negative x 1 Vital Signs Period Temp Pulse Resp BP Sys/Flores Pulse Ox Last 24 Hr 98.0 F 76 17-17 117/74 99-99 PHYSICAL EXAM GENERAL: The patient is awake, alert, and fully oriented, in no acute distress. HEAD: Normal with no signs of trauma. EYES: PERRL, extraocular movements intact, sclera anicteric, conjunctiva clear. ENT: Ears normal, nares patent, oropharynx clear without exudates, moist mucous membranes. NECK: Trachea midline, full range of motion, supple. LUNGS: Breath sounds equal, clear to auscultation bilaterally, no wheezes, no crackles, no accessory muscle use. HEART: irregular regular rate and rhythm, S1, S2 without murmur, rub or gallop. ABDOMEN: Soft, nontender, nondistended, normoactive bowel sounds, no guarding, no rebound, no hepatosplenomegaly, no masses. EXTREMITIES: 2+ pulses, warm, well-perfused, no edema. NEUROLOGICAL: Cranial nerves II through XII grossly intact. Normal speech, gait not observed. PSYCH: Normal mood, normal affect. SKIN: Warm, dry, normal turgor, no rashes or lesions noted. LABS Laboratory Results - last 24 hr 04/07/17 04/07/17 07:00 07:00 WBC 4.3 D RBC 4.62 Hgb 13.7 Hct 39.6 MCV 85.8 MCH 29.8 MCHC 34.7 RDW 12.8 Plt Count 208 MPV 7.4 L Neutrophils % 50.8 Lymphocytes % 39.9 Monocytes % 7.1 Eosinophils % 1.4 Basophils % 0.8 Sodium 140 Potassium 4.3 Chloride 112 H Carbon Dioxide 30 H Anion Gap -2 L BUN 17 Creatinine 0.7 Random Glucose 101 Calcium 8.3 L Phosphorus 3.3 Magnesium 2.2 Creatine Kinase 76 Troponin I 0.04 Laboratory Tests 04/06/17 04/06/17 04/07/17 16:35 22:30 07:00 Troponin I < 0.03 L 0.03 0.04 ECG sinus rhythm with bigeminy vent rate 97, QTC [address]/T wave changes Radiology Reports CXR: final read pending, haziness noted RLL perihilar aspect, will await final reading HOSPITAL COURSE: * patient was admitted to the hosptial for ventricular Bigeminy, troponin x 3 wnl, echo LV WNL, cardiology, Dr Enriquez consulted and followed. She was placed on daily ASA, patient was placed on continuous cardiac monitoring. * new onset headaches, head ct no acute pathology noted, magnesium, toradaol and reglan ordered with relief of headaches. Date of Admission:04/06/17 Date of Discharge: 04/08/17 Minutes to complete discharge: 45 Discharge Summary Reason For Visit: WEAKNESS BIGEMINY Condition: Stable - Instructions Diet, Activity, Other Instructions: Return to Emergency Department for new, worsening or persistent chest pain. Resume your usual diet and activities. Follow up with Dr. Enriquez (cardiology) to continue outpatient cardiac workup. Referrals: Kandi Enriquez MD [Staff Physician] - 1 Week Alden Bernstein MD [Staff Physician] - 1 Week Disposition: HOME - Home Medications Comprehensive Discharge Medication List: Ambulatory Orders NK [No Known Home Medication] 04/06/17 This patient is new to me today: No Emergency Visit: Yes ED Registration Date: 04/06/17 Care time: The patient presented to the Emergency Department on the above date and was hospitalized for further evaluation of their emergent condition. Critical Care patient: No - Discharge Referral Referred to [facility] No
== END 2017-04-07 21:00 | disposition home or self-care (01) ==
LOC: FER 16:20 → FM/S 21:23
PROVIDERS: ADMIT Internal Medicine; ATTEND Nurse Practitioner Family
PROC: 3E033GC Introduction of Other Therapeutic Substance into Peripheral Vein, Percutaneous Approach (ICD-10-PCS; principal; 2017-04-06)
PROC: 3E0337Z Introduction of Electrolytic and Water Balance Substance into Peripheral Vein, Percutaneous Approach (ICD-10-PCS; 2017-04-06)
DX: I49.3 Ventricular premature depolarization (principal); R53.1 Weakness; R51 Headache
CPT/HCPCS: 36415; 70450-TC; 71010-TC; 80048; 80053; 81003; 81015; 83735; 84100; 84443; 84484; 85025; 85610; 86850; 86900; 86901; 87086; 93005; 93306-TC; 99285-25; G0378